=== PATIENT | male | born 1955 | race Caucasian/White ===

== ENCOUNTER → 2024-01-20 07:04 | Outpatient (REF) | payer OTHER, SELFPAY | LOC: DHCBC/DCA 07:04 | PROVIDERS: ATTENDING PHYSICIAN Nuclear Medicine Nuclear Cardiology; FAMILY PHYSICIAN Family Medicine | DX: I10 Essential (primary) hypertension (principal); R94.39 Abnormal result of other cardiovascular function study; R07.89 Other chest pain; R06.09 Other forms of dyspnea | CPT/HCPCS: 78452; 93017; A9500 ==

== ENCOUNTER → 2024-01-21 10:16 | Day surgery (SDC) | payer OTHER, SELFPAY ==
[2024-01-21] VITALS (10 sets, daily range): BP systolic 121–150; BP diastolic 60–66; BMI 31.1
[2024-01-21 11:43] LABS: Hematocrit 39.6 % (39.0-52.0); Hemoglobin 13.8 g/dL (13.0-18.0); Mean Corp Hgb Conc. 34.8 g/dL (33.0-37.0); Mean Corpuscular Hgb 29.6 pg (27.0-31.0); Mean Corpuscular Volume 84.8 fL (80.0-94.0); Platelet Count 284 10^3/uL (130-400); Red Blood Cell Count 4.67 10^6/uL (4.70-6.10); Red Cell Dist. Width 13.4 % (11.5-14.5); White Blood Cell Count 5.2 10^3/uL (4.8-10.8)
[2024-01-21 11:44] LABS: Glucose - Point of Care 151 mg/dl (70-99)
[2024-01-21] MEDS: LOW STRENGTH ASPIRIN 81 MG PO (11:56)
[2024-01-21 12:10] LABS: ALT (SGPT) 39 U/L (0-50); AST (SGOT) 39 U/L (17-59); Albumin 4.9 g/dl (3.5-5.0); Alkaline Phosphatase 70 U/L (38-126); Blood Urea Nitrogen 22 mg/dl (9-20); Calcium 9.8 mg/dl (8.4-10.2); Carbon Dioxide 21 mmol/L (22-30); Chloride 104 mmol/L (98-107); Estimated Creatinine Clearance 69 ml/min; Glucose 157 mg/dl (70-99); Sodium 136 mmol/L (135-145); Total Bilirubin 0.6 mg/dl (0.2-1.3); Total Protein 7.8 g/dl (6.3-8.2); eGFR > 60.00
[2024-01-21 12:53] LABS: ACT-LR - POC 215 Seconds (116-155)
[2024-01-21 13:06] LABS: ACT-LR - POC 258 Seconds (116-155)
[2024-01-21 13:22] LABS: ACT-LR - POC 308 Seconds (116-155)
--- NOTE | 2024-01-21 14:09 | ITS.CL.CATH ---
[facility] - Catheterization
Cardiac Catheterization
Procedure Report:
LEFT HEART CATH AND CORONARY INTERVENTION
Date of Procedure: January 21, 2024
Referring: Dr. Polo Hernandez
PROCEDURES:
1. Left heart catheterization with coronary and single-plane left ventriculography
2. Hemodynamic assessment of the LAD with a [employer] Omni wire. The iFR measured below the ischemic threshold
3. Successful stenting of mid LAD with a 3.0 x 18 mm Andrew stent that was implanted at nominal pressures and postdilated with a 3.25 mm noncompliant balloon
INDICATION: This is a 68-year-old diabetic gentleman with hypertension and hyperlipidemia. In 2019 he underwent coronary angiography and hemodynamic assessment of an angiographically moderate stenosis in the mid LAD. The iFR measured above the
ischemic threshold. A recent stress study was notable for the development of chest discomfort with ECG changes for which he is now referred for coronary angiography.
ACCESS: Right radial artery, 6 Hungarian sheath using ultrasound guidance
HEMODYNAMICS (mmHg):
AO (s/d, m) : 126/68, 92
LV (s/d) : 127/10
LVEDP : 19
CORONARY FINDINGS
Dominance: Left
LEFT MAIN: Normal
LEFT ANTERIOR DESCENDING: The LAD has a 20-30% proximal stenosis. There is a calcified and somewhat eccentric 60-65% stenosis in the mid LAD and a long 40-50% stenosis in the mid-distal LAD. The LAD wraps completely around the apex supplying a
significant portion of the inferior wall.
CIRCUMFLEX: The circumflex is a medium caliber dominant vessel. OM1 is very small. OM 2 is large and supplies a large vascular territory bifurcating distally. The circumflex then continues in the AV groove supplying the PDA and posterolateral
branch which have only minor irregularity
RIGHT CORONARY: Nondominant
VENTRICULOGRAPHY: Left ventriculography is performed in an BLOUNT projection. The digital single-plane left ventricular ejection fraction is estimated at 65% and no regional wall motion abnormalities are noted
HEMODYNAMIC ASSESSMENT OF THE LAD WITH A VOLCANO OMNI WIRE: The origin of the left main was cannulated with a 6 Fr XB 3.5 guide catheter. Intravenous heparin was administered and the ACT was followed during the procedure. Two hundred micrograms of
intracoronary nitroglycerin was given through the guide catheter. A [employer] Omni wire was advanced to the guide catheter tip and normalized to guide catheter pressure. The Omni wire was then carefully manipulated across the stenosis in the mid LAD
where the iFR serially measured/below the ischemic threshold at 0.84, 0.85, 0.86, and 0.86. The Pd/Pa normalized to baseline with pullback to the guide catheter confirming no baseline drift
ANGIOPLASTY PROCEDURE DETAIL: Intravenous heparin was administered both for the iFR and for the coronary interventional procedure. A BMW guidewire was advanced to the apical LAD. Balloon predilation was performed with a 2.25 mm Trek balloon and
was followed by placement of a 3.0 x 18 mm Andrew stent that was implanted at nominal pressures and postdilated distally with a 3.25 mm noncompliant balloon to 16 elba and in the proximal midportion of the stent to 18 elba
RADIATION SUMMARY: Fluoro Time (min): 10, Dose (mGy): 520, DAP (Gy.cm2) : 34.6
CONCLUSIONS
1. Successful stenting of the mid LAD with a 3.0 x 18 mm [place] stent that was implanted at high pressures with a 3.25 mm noncompliant balloon
2. Preserved left ventricular systolic function
RECOMMENDATIONS
1. Uninterrupted dual antiplatelet therapy for 6-12 months
2. Will change pravastatin to atorvastatin 80 mg daily
3. Monitor home blood pressures and follow-up in the office as scheduled with a list of home blood pressure readings. May titrate antihypertensive for goal blood pressure less than 130 over
Copy to: Dr. Polo Hernandez
--- NOTE | 2024-01-21 17:03 | W.PN.UPDATE ---
Update Note
Progress Note Update
68 yo WM s/p PCI LAD (same day). He feels good, no cp, sob, jones diet, voiding, EKG SR PAC's no sig ST changes, Rad site c/d/i. He will be on DAPT ASA/Plavix. He will hold Metformin post procedure 48 hours. Cardiac rehab c/s.He will stop pravastatin
and switch to atorvastatin 80mg. He will f/u DCA in 2-4 weeks. He is for d/c home after 6pm.
PROCEDURES:
1. Left heart catheterization with coronary and single-plane left ventriculography
2. Hemodynamic assessment of the LAD with a [employer] Omni wire. The iFR measured below the ischemic threshold
3. Successful stenting of mid LAD with a 3.0 x 18 mm Andrew stent that was implanted at nominal pressures and postdilated with a 3.25 mm noncompliant balloon
INDICATION: This is a 68-year-old diabetic gentleman with hypertension and hyperlipidemia. In 2019 he underwent coronary angiography and hemodynamic assessment of an angiographically moderate stenosis in the mid LAD. The iFR measured above the
ischemic threshold. A recent stress study was notable for the development of chest discomfort with ECG changes for which he is now referred for coronary angiography.
== END | disposition home or self-care (01) ==
LOC: CATH 10:16
PROVIDERS: ATTENDING PHYSICIAN Internal Medicine Interventional Cardiology; FAMILY PHYSICIAN Family Medicine; OTHER PHYSICIAN Nuclear Medicine Nuclear Cardiology
DX: I25.10 Atherosclerotic heart disease of native coronary artery without angina pectoris (principal); E78.5 Hyperlipidemia, unspecified; I10 Essential (primary) hypertension; E11.9 Type 2 diabetes mellitus without complications; Z79.02 Long term (current) use of antithrombotics/antiplatelets; Z79.82 Long term (current) use of aspirin; R94.39 Abnormal result of other cardiovascular function study; Z79.84 Long term (current) use of oral hypoglycemic drugs
CPT/HCPCS: 80053; 82962; 85027; 85347; 93005; 93458; 93571; C1725; C1769; C1874; C1887; C1894; C9600; Q9967

== ENCOUNTER → 2024-03-21 10:05 | Outpatient (REF) | payer OTHER, SELFPAY | LOC: HWRCS 10:05 | PROVIDERS: ATTENDING PHYSICIAN Nuclear Medicine Nuclear Cardiology; FAMILY PHYSICIAN Family Medicine | DX: I10 Essential (primary) hypertension (principal); R94.39 Abnormal result of other cardiovascular function study; R07.89 Other chest pain; R06.09 Other forms of dyspnea | CPT/HCPCS: 93306 ==

== ENCOUNTER → 2025-04-26 08:00 | Outpatient (REF) | payer OTHER, MEDICARE, SELFPAY | LOC: HWRCS 08:00 | PROVIDERS: ATTENDING PHYSICIAN Nuclear Medicine Nuclear Cardiology; FAMILY PHYSICIAN Family Medicine | DX: I25.10 Atherosclerotic heart disease of native coronary artery without angina pectoris (principal); R06.02 Shortness of breath; Z95.5 Presence of coronary angioplasty implant and graft | CPT/HCPCS: 93306 ==